=== PATIENT | male | born 1985 | race Caucasian/White ===

== ENCOUNTER 2016-12-13 12:24 | Emergency (ER) | payer BC, OTHER ==
[~2016-12-13] VITALS: Ht 190.5 cm; Wt 91.0 kg
[2016-12-13 12:29] VITALS: BP 143/98; PULSE 112; RESP 20; TEMP 97.8; O2SAT 99
[2016-12-13 12:35] VITALS: BP 163/82; PULSE 110; RESP 20; O2SAT 98
[2016-12-13] MEDS ORDERED: DICL50TA PO (12:36)
[2016-12-13] MEDS ORDERED: CIPR-9 PO (12:36)
[2016-12-13] MEDS: RESP: ALBUTEROL 2.5 MG/IPRATROPIUM 0.5 MG NEB (SCH) INH ×2 (12:57→12:58)
[2016-12-13] MEDS ORDERED: MORPHINE SULFATE 4 MG/ML INJ IV PUSH ONE (13:00)
[2016-12-13] MEDS ORDERED: ONDANSETRON HCL 4 MG/2 ML VIAL IV PUSH ONE (13:00)
[2016-12-13] MEDS ORDERED: SODIUM CHLORIDE 0.9% FLUSH 5 ML FLUSH IVF PRN (13:00)
[2016-12-13] MEDS ORDERED: SODIUM CHLOR 0.9% 1000 ML INJ 1,000 ML IV ONE (13:00)
[2016-12-13 13:03] VITALS: O2SAT 96
[2016-12-13 13:22] LABS: POTASSIUM 3.5 MEQ/L (3.5-5.1)
[2016-12-13 13:25] LABS: BICARBONATE 30.1 MEQ/L (21.0-32.0)
--- NOTE | 2016-12-13 13:51 | RADHPO ---
EXAM DATE/TIME: 12/13/2016 13:32 [place] COMPARISON: No previous studies available for comparison. INDICATIONS : Short of breath and chest pain when breathing. MEDICAL HISTORY : None. SURGICAL HISTORY : None. ENCOUNTER: Initial ACUITY: 2 days PAIN SCORE: 3/10 LOCATION: Bilateral chest FINDINGS: A single portable frontal view of the chest is somewhat lordotic in positioning. A dense infiltrate w ith air bronchograms is seen within the right upper lobe. The left lung is clear. No effusions. Heart is normal in size. Bony structures are unremarkable. CONCLUSION: Consolidation within the right upper lobe. This likely relates to an infectious etiology. Followup ex am to document resolution is suggested. Jose Cagle Jr., MD on December 13, 2016 at 13:48 Board Certified Radiologist. This report was verified electronically.
[2016-12-13 13:57] LABS: AUTOMATED NEUTROPHIL # 9.1 TH/MM3 (1.8-7.7); BASOPHIL % 0.3 % (0.0-2.0); EOSINOPHIL # 0.1 TH/MM3 (0-0.4); EOSINOPHIL % 0.7 % (0.0-4.0); HEMATOCRIT 39.5 % (39.0-51.0); HEMO FLAGS AUTO DIFF; LYMPHOCYTE # 1.4 TH/MM3 (1.0-4.8); MEAN CELL VOLUME 86.5 FL (80.0-100.0); MEAN CORPUSCULAR HEMOGLOBIN 28.7 PG (27.0-34.0); MEAN CORPUSCULAR HGB CONC 33.2 % (32.0-36.0); MONO % 10.5 % (0.0-8.0); NEUT % 76.5 % (16.0-70.0); PLATELET COUNT 465 TH/MM3 (150-450); RED BLOOD COUNT 4.57 MIL/MM3 (4.50-5.90); RED CELL DISTRIBUTION WIDTH 14.4 % (11.6-17.2); WHITE BLOOD COUNT 11.8 TH/MM3 (4.0-11.0)
[2016-12-13 13:58] LABS: PLATELET ESTIMATE SMEAR HIGH (NORMAL); PLATELET MORPHOLOGY NORMAL (NORMAL); SCAN/DIFF AUTO DIFF CONFIRMED
[2016-12-13] MEDS ORDERED: LEVA750T PO (13:58)
[2016-12-13] MEDS ORDERED: VENTAER INH (13:58)
--- NOTE | 2016-12-13 13:59 | PD ---
HPI Chief Complaint: Respiratory Symptoms Time Seen by Provider: 12:38 Travel History International Travel<30 days: No Contact w/Intl Traveler<30days: No Traveled to known affect area: No History of Present Illness HPI Patient is a healthy 31-year-old male former smoker who presents the emergency department with complaint of shortness of breath. Patient has had approximately one week of cough, right sided chest pain that is sharp and pleuritic in nature of her right chest wall radiating to the subscapular region on the right side. Sputum production, yellowish. Patient was seen at urgent care last week and was diagnosed with musculoskeletal etiology and treated with diclofenac. Patient states that this has not been helping his symptom. He notes fever up to 102. He was seen by PCP last week or ordered blood work and started patient on ciprofloxacin, which patient has been taking for the last 48 hours. Patient was to follow-up with PCP in 2 days for results of blood work but was told to come to the ER if his symptoms do not improve in patient feels worse today with nausea and vomiting. Recent travel, sick contacts, DVT or PE risk factors. PFSH Past Medical History Medical History: Denies Significant Hx Diminished Hearing: No Influenza Vaccination: No ?: Not Past Surgical History Surgical History: No Previous Surgery Social History Alcohol Use: Yes Tobacco Use: No Allergies-Medications (Allergen,Severity, Reaction): Coded Allergies: No Known Allergies (Verified , 12/13/16) Reported Meds & Prescriptions Reported Meds & Active Scripts Active Ventolin Hfa 18 GM Inh (Albuterol Sulfate) 90 Mcg/Act Aer 2 Puff INH Q4-6H PRN Levaquin (Levofloxacin) 750 Mg Tab 750 Mg PO DAILY 7 Days Reported Diclofenac Potassium 50 Mg Tab 50 Mg PO TID Cipro (Ciprofloxacin HCl) 500 Mg Tab 500 Mg PO BID Review of Systems Except as stated in HPI: all other systems reviewed are Neg Physical Exam Narrative GENERAL: Well-appearing male in no mild distress SKIN: Warm and dry. HEAD: Normocephalic. EYES: No scleral icterus. No injection or drainage. ENT: Mucous membranes pink and moist. NECK: Supple CARDIOVASCULAR: Borderline tachycardia with heart rate in the 90s to 100, regular rhythm. No murmur appreciated. RESPIRATORY: No accessory muscle use. Clear to auscultation. Breath sounds equal bilaterally. GASTROINTESTINAL: Abdomen soft, non-tender, nondistended. MUSCULOSKELETAL: No obvious deformities. No edema. NEUROLOGICAL: Awake and alert. Normal speech. PSYCHIATRIC: Appropriate mood and affect; insight and judgment normal. Data Data Last Documented VS Vital Signs Date Time Temp Pulse Resp B/P Pulse Ox O2 Delivery O2 Flow Rate FiO2 12/13/16 13:03 96 Room Air 12/13/16 12:39 20 12/13/16 12:35 110 163/82 12/13/16 12:29 97.8 Orders Complete Blood Count With Diff (12/13/16 12:51) Basic Metabolic Panel (Bmp) (12/13/16 12:51) Iv Access Insert/Monitor (12/13/16 12:51) Ecg Monitoring (12/13/16 12:51) Oximetry (12/13/16 12:51) Chest, Single Ap (12/13/16 12:51) Sodium Chloride 0.9% Flush (Ns Flush) (12/13/16 13:00) Albuterol-Ipratropium Neb (Duoneb Neb) (12/13/16 13:00) Ondansetron Inj (Zofran Inj) (12/13/16 13:00) Morphine Inj (Morphine Inj) (12/13/16 13:00) Sodium Chlor 0.9% 1000 Ml Inj (Ns 1000 M (12/13/16 13:00) Levofloxacin (Levaquin) (12/13/16 14:00) Labs Laboratory Tests Test 12/13/16 13:02 White Blood Count 11.8 TH/MM3 Red Blood Count 4.57 MIL/MM3 Hemoglobin 13.1 GM/DL Hematocrit 39.5 % Mean Corpuscular Volume 86.5 FL Mean Corpuscular Hemoglobin 28.7 PG Mean Corpuscular Hemoglobin 33.2 % Concent Red Cell Distribution Width 14.4 % Platelet Count 465 TH/MM3 Mean Platelet Volume 7.6 FL Neutrophils (%) (Auto) 76.5 % Lymphocytes (%) (Auto) 12.0 % Monocytes (%) (Auto) 10.5 % Eosinophils (%) (Auto) 0.7 % Basophils (%) (Auto) 0.3 % Neutrophils # (Auto) 9.1 TH/MM3 Lymphocytes # (Auto) 1.4 TH/MM3 Monocytes # (Auto) 1.2 TH/MM3 Eosinophils # (Auto) 0.1 TH/MM3 Basophils # (Auto) 0.0 TH/MM3 CBC Comment AUTO DIFF Differential Comment AUTO DIFF CONFIRMED Platelet Estimate HIGH Platelet Morphology Comment NORMAL Red Cell Morphology Comment NORMAL Sodium Level 140 MEQ/L Potassium Level 3.5 MEQ/L Chloride Level 100 MEQ/L Carbon Dioxide Level 30.1 MEQ/L Anion Gap 10 MEQ/L Blood Urea Nitrogen 8 MG/DL Creatinine 0.74 MG/DL Estimat Glomerular Filtration 122 ML/MIN Rate Random Glucose 127 MG/DL Calcium Level 8.8 MG/DL [facility] Medical Decision Making Medical Screen Exam Complete: Yes Emergency Medical Condition: Yes Medical Record Reviewed: Yes Differential Diagnosis 31-year-old male here with one week of shortness of breath, cough with sputum production and right sided sharp chest pain. Differential includes bronchitis, pneumonia, pleurisy, PE, viral syndrome. Narrative Course Patient placed on monitor, IV established and blood obtained. Given 1 L normal saline bolus, 4 mg Zofran, 4 mg morphine, DuoNeb 2. Portable chest x-ray obtained that shows a consolidation within the right upper lobe, infectious in etiology. CBC, BMP unremarkable. Patient has been treated with ciprofloxacin which is not an appropriate respiratory fluoroquinolone and therefore was given Levaquin for his pneumonia. He is not significantly tachycardic, hypoxic and I feel that he is appropriate for outpatient management. Diagnosis Primary Impression: Right upper lobe pneumonia Qualified Code: J18.1 - Pneumonia of right upper lobe due to infectious organism Referrals: Primary Care Physician 1 week For repeat chest x-ray Additional Instructions: Stop the ciprofloxacin. Take Levaquin instead. Albuterol inhaler as needed for shortness of breath, cough. Follow-up with primary care provider for repeat chest x-ray to confirm resolution of pneumonia. Med/Other Pt SpecificInfo: Prescription(s) given Scripts Albuterol 18 GM Inh (Ventolin Hfa 18 GM Inh)90 Mcg/Act Aer2 Puff INH Q4-6H PRN ( SHORTNESS OF BREATH) #1 INHALER Ref 0 Prov:Christy Saldana MD 12/13/16 Levofloxacin (Levaquin)750 Mg Spx675 Mg PO DAILY 7 Days Ref 0 Prov:Christy Saldana MD 12/13/16 Disposition: 01 DISCHARGE HOME Condition: Stable Christy Saldana MD Dec 13, 2016 13:59
[2016-12-13] MEDS ORDERED: LEVOFLOXACIN 750 MG TAB PO ONE (14:00)
[2016-12-13 14:03] VITALS: BP 160/87; PULSE 112; RESP 20; O2SAT 98
== END 2016-12-13 14:13 | disposition home or self-care (01) ==
LOC: PHED 12:24
DX: J18.9 Pneumonia, unspecified organism (principal); R07.9 Chest pain, unspecified; R11.2 Nausea with vomiting, unspecified
CPT/HCPCS: 71010; 80048; 85025; 94640; 94664; 96361; 96374; 96375; 99284; J2270; J2405; J7030